=== PATIENT | female | born 1975 | race Two or more races ===

== ENCOUNTER 2016-06-11 23:31 | Emergency (ER) | payer OTHER ==
[2016-09-14] MEDS ORDERED: NO MEDICATIONS (07:33)
== END 2016-06-11 23:49 | disposition home or self-care (01) ==
LOC: CED 23:31
DX: K64.5 Perianal venous thrombosis (principal)
CPT/HCPCS: 99282

== ENCOUNTER → 2016-09-14 | Day surgery (SDC) | payer OTHER ==
[~2016-09-14] MED LIST: NO MEDICATIONS
--- NOTE | ~2016-09-14 | OR ---
Unit #: [id number] #: [id number] Patient: DOUG SPENCER [id number] [address] [address] [id number] O MR#: [id number] NAME: DOUG SPENCER ROOM: Date of Procedure: 09/14/2016 Admission Date: 09/14/2016 Surgeon: Jerod Lopez M.D. : 1975 Attending Physician: Jerod Lopez M.D. Primary Care Physician: Generic Doctor Not In System OPERATIVE REPORT PREOPERATIVE DIAGNOSES 1. Rectal bleeding. 2. Rectal pain. POSTOPERATIVE DIAGNOSES 1. Rectal bleeding. 2. Rectal pain. PROCEDURES PERFORMED 1. Exam under anesthesia. 2. Hemorrhoidectomy x2 with Harmonic Kenton. ANESTHESIA General endotracheal anesthesia with 0.5% Marcaine plain local anesthesia. FINDINGS The patient was found to have large prolapsing internal and external hemorrhoids. SPECIMENS Sent to Pathology. COMPLICATIONS None apparent. CONDITION The patient tolerated the procedure well. INDICATIONS FOR PROCEDURE The patient is a 41-year-old female, who earlier today underwent colonoscopy. The patient was found to have prolapsing internal and external hemorrhoids with a large amount of redundant tissue. She presents at this time for exam under anesthesia and possible hemorrhoidectomy. DESCRIPTION OF PROCEDURE After obtaining informed consent from nurse behavioral health care [id number] as well as receiving preoperative antibiotics, the patient was brought to the operating room. After adequate general endotracheal anesthesia was obtained on the gurney, was very carefully placed into the prone position with chest rolls in place and all extremities manipulated carefully and all pressure points carefully padded. Her buttocks were taped apart. Her Unit #: [id number] #: [id number] Patient: DOUG SPENCER anus was gently dilated with one and two then three fingers. An operating anoscope was placed into proper position and the patient was found to have no obvious abnormalities other than prolapsing internal and external hemorrhoids. At this point in time, a hemorrhoid was grasped at the anterior aspect with an Allis clamp. Using the Harmonic Kenton, a large prolapsing hemorrhoid was excised from the anterior aspect of the anal area and using the Harmonic Kenton in the submucosal space. It was excised with good hemostasis. The mucosa and skin were then reapproximated and closed with a running locking 3-0 chromic suture. At this point in time, a large hemorrhoid was rasped at the right anterolateral area with an Allis clamp and was excised with the Harmonic Kenton with good hemostasis. This was left open with good hemostasis. All areas were infiltrated with 0.5% Marcaine plain local anesthesia. There was good sphincter tone at the end of the procedure. There was good hemostasis. Perianal block of Marcaine had been performed and then a piece of Gelfoam soaked in viscous Xylocaine was placed into the anal canal. 4x4s were placed followed by an ABD pad and mesh panties. Needle counts, sponge counts, and instrument counts were all correct as reported by the scrub nurse x2. The patient went from the operative room to the recovery room in stable condition. Dictated by... Ale Thakur/ariana TD: 09/15/2016 01:43 JOB #: [id number] CC: [facility] OPERATIVE REPORT Page 1 of 1 X Jerod Lopez MD X PROCEDURE OPERATIVE NOTE
--- NOTE | ~2016-09-14 | OR ---
Unit #: [id number] #: [id number] Patient: DOUG SPENCER [id number] [address] [place], [place] [address] [id number] O MR#: [id number] NAME: DOUG SPENCER ROOM: Date of Procedure: 09/14/2016 Admission Date: 09/14/2016 Surgeon: Jerod Lopez M.D. : 1975 Attending Physician: Jerod Lopez M.D. OPERATIVE REPORT PREOPERATIVE DIAGNOSES Rectal bleeding and anal pain. POSTOPERATIVE DIAGNOSES Rectal bleeding and anal pain. PROCEDURE PERFORMED Colonoscopy to cecum. ANESTHESIA Monitored anesthesia care. FINDINGS The patient had normal colon to the cecum. There was a somewhat poor prep. The patient was found to have prolapsing internal and external hemorrhoids. SPECIMENS None. COMPLICATIONS None apparent. CONDITION The patient tolerated the procedure well. INDICATIONS FOR PROCEDURE The patient is a 41-year-old female, who presents at this time for colonoscopy for rectal bleeding and rectal pain. DESCRIPTION OF PROCEDURE After obtaining informed consent through telephone interpreter and translator [phone], the patient was brought to the endoscopy suite. After adequate monitored anesthesia care, had the colonoscope placed through the anus and slowly advanced to the level of the cecum without difficulty with the lumen always in view. The patient overall was fairly clear, but she still had some thick greenish liquid present. The vast majority was irrigated out and suctioned out. The cecum was normal as was the ascending colon, hepatic flexure, transverse colon, splenic flexure, descending colon, sigmoid colon, and upper rectum. No diverticula were seen. On retroflexion back to the anorectal junction, there were some moderate internal hemorrhoids. On pulling back through the anal canal, there was a Unit #: [id number] #: [id number] Patient: DOUG SPENCER large amount of prolapsing internal and external hemorrhoids and redundant tissue. No other abnormalities were seen. The patient tolerated the procedure well and went from the endoscopy suite to the recovery area in stable condition. Dictated by... Ale Thakur/ariana TD: 09/15/2016 01:23 JOB #: [id number] CC: [facility] OPERATIVE REPORT Page 1 of 1 X Jerod Lopez MD PROCEDURE OPERATIVE NOTE
== END | disposition home or self-care (01) ==
LOC: COPS 06:53
DX: K64.8 Other hemorrhoids (principal); K64.4 Residual hemorrhoidal skin tags; I99.8 Other disorder of circulatory system; Z98.890 Other specified postprocedural states
CPT/HCPCS: 88304; J0330; J1100; J2175; J2250; J2405; J3010